=== PATIENT | female | born 1990 | race Caucasian/White ===

== ENCOUNTER 2018-10-23 15:29 | Emergency (ER) | payer MEDICAID ==
[~2018-10-23] VITALS: Ht 162.6 cm; Wt 59.0 kg
[2018-10-23] MEDS ORDERED: NKM (15:39)
--- NOTE | 2018-10-23 16:00 | NUR ---
ED Nurse Note:pt. came with c/o nausea and abdominal pain, urine was sent to labs and zofran given
--- NOTE | 2018-10-23 16:05 | Emergency Room Report ---
History of Present Illness General Chief Complaint: Nausea Source: Patient Present Illness HPI 27-year-old female with no PMH complaining of nausea and mood swings x1 to 2 weeks, worse in the last 3 days. Denies fever, URI symptoms, headache, vomiting, abdominal pain, dysuria, vaginal bleed. LMP September 19, 2018. Allergies: Coded Allergies: GLUTEN (Verified Allergy, Unknown, 10/23/18) Patient History Past Medical History: none Past Surgical History: none Social History: Denies: smoking, alcohol use, drug use Last Menstrual Period: 09/2018 Nursing Documentation-PMH Past Medical History: No Stated History Review of Systems All Other Systems: negative except mentioned in HPI Physical Exam Vital Signs Date Time Temp Pulse Resp B/P (MAP) Pulse Ox O2 Delivery O2 Flow Rate FiO2 10/23/18 15:35 98.4 88 16 112/63 (79) 98 Room Air Sp02 EP Interpretation: reviewed, normal Respiratory: chest non-tender, lungs clear, normal breath sounds, speaking full sentences Cardiovascular #1: regular rate, rhythm, no edema Gastrointestinal: normal bowel sounds, non tender, soft, non-distended, no guarding, no rebound Neurologic: alert, oriented x3, responsive, motor strength/tone normal, sensory intact, speech normal Skin: no rash, warm/dry Medical Decision Making PA Attestation This patient was seen under the direct supervision of Dr. Arana, who directed all aspects of care and diagnostic interpretation. Diagnostic Impression: Primary Impression: ER Course ED course HPI: 27-year-old female with no PMH complaining of nausea and mood swings x1 to 2 weeks, worse in the last 3 days. Denies fever, URI symptoms, headache, vomiting, abdominal pain, dysuria, vaginal bleed. LMP September 19, 2018. Orders/ Interventions: Patient given Zofran for nausea in the ER. Urine is positive. Disposition: Followup with PCP for referral to LOCOMOTIVE INSPECTOR. Start vitamins. At this time pt. is stable for d/c to home. Will provide printed patient care instructions, and any necessary prescriptions. Care plan and follow up instructions have been discussed with the patient prior to discharge. Please note that this Emergency Department Report was dictated using [employer]tear[employer] host technology software, occasionally this can lead to erroneous entry secondary to interpretation by the dictation equipment. Last Vital Signs Date Time Temp Pulse Resp B/P (MAP) Pulse Ox O2 Delivery O2 Flow Rate FiO2 10/23/18 15:35 98.4 88 16 112/63 (79) 98 Room Air Status: unchanged Disposition: HOME, SELF-CARE Condition: Stable Referrals: NOT CHOSEN [facility],REFERRING (PCP) Patient Instructions: Nausea, Adult, Test Information Additional Instructions: Follow-up with PCP for referral to LOCOMOTIVE INSPECTOR. Nena Mcgraw Oct 23, 2018 16:05
[2018-10-23 16:08] VITALS: BP 112/63
[2018-10-23 16:59] VITALS: BP 112/63
--- NOTE | 2018-10-23 17:00 | NUR ---
ER DISCHARGE NOTE: Patient is cleared to be discharged per ERMD, pt is aox4, on room air, with stable vital signs. pt was given dc and prescription instructions, pt was able to verbalize understanding, pt is able to ambulate with steady gait. pt took all belongings.
== END 2018-10-23 17:10 | disposition home or self-care (01) ==
LOC: EMR 15:48
DX: O26.891 Other specified pregnancy related conditions, first trimester (principal); R11.0 Nausea; Z91.018 Allergy to other foods
CPT/HCPCS: 81025; 99283

== ENCOUNTER 2019-09-17 17:58 | Emergency (ER) | payer MEDICAID ==
[~2019-09-17] VITALS: Ht 162.6 cm; Wt 56.7 kg
[~2019-09-17 17:58] MED LIST: NKM
--- NOTE | 2019-09-17 18:20 | NUR ---
ED Nurse Note: pt walked in to ER from home and brought an infact baby. pt aao x4 and ambulatory. pt came to check . per pt, she had normal period 2 weeks ago and it ended a week ago. and pt started spotting few days ago. last sexual activity was yesterday. no cardiac or pulmonary distress noted at this time. pt was educated on how occurs by ERPA. urine sample sent to lab.
[2019-09-17 18:30] LABS: APPEARANCE,URINE SLIGHTLY CLOUDY; BILIRUBIN, URINE NEGATIVE (NEGATIVE); GLUCOSE, URINE (UA) NEGATIVE (NEGATIVE); KETONES,URINE NEGATIVE (NEGATIVE); LEUKOCYTE ESTERASE ,URINE 3+ (NEGATIVE); NITRITE,URINE NEGATIVE (NEGATIVE); PH,URINE 5 (4.5-8.0); PROTEIN,URINE NEGATIVE (NEGATIVE); UROBILINOGEN,URINE NORMAL MG/DL (0.0-1.0)
[2019-09-17 18:36] LABS: COLOR,URINE YELLOW
[2019-09-17 18:38] VITALS: BP 102/70
--- NOTE | 2019-09-17 18:39 | Emergency Room Report ---
History of Present Illness General Chief Complaint: Female Urogenital Problems Source: Patient Present Illness HPI 29-year-old female with no significant past medical history who is G1, P1 here requesting a test. Patient denies any abdominal pain, vaginal bleeding. Reports that her last menstrual period started 2 weeks ago and ended 1 week ago lasting exactly 7 days. Reports that 30 last night after she was sexually active she started spotting. Denies any abdominal cramping pelvic pain. Denies any vaginal discharge. Denies any urinary frequency and urgency. Has not taken medication for symptom relief. Reports that she has not done any home test. Is only requesting a test at this time. Allergies: Coded Allergies: GLUTEN (Verified Allergy, Unknown, 10/23/18) COVID-19 Screening Contact w/high risk pt: No Experienced COVID-19 symptoms?: No COVID-19 Screening: Negative COVID-19 COVID-19 Testing Source: [place] Patient History Past Medical History: see triage record Past Surgical History: none Pertinent Family History: none Last Menstrual Period: 09/05/2019 Now: No Immunizations: UTD Reviewed Nursing Documentation: PMH: Agreed; PSxH: Agreed Nursing Documentation-PMH Past Medical History: No Stated History Review of Systems All Other Systems: negative except mentioned in HPI Physical Exam Vital Signs Date Time Temp Pulse Resp B/P (MAP) Pulse Ox O2 Delivery O2 Flow Rate FiO2 09/17/19 18:03 98.2 81 16 102/70 (81) 100 Room Air Sp02 EP Interpretation: reviewed, normal General Appearance: no apparent distress, alert, GCS 15, non-toxic Head: normocephalic, atraumatic Eyes: bilateral eye normal inspection, bilateral eye PERRL ENT: hearing grossly normal, normal pharynx, no angioedema, normal voice Neck: full range of motion, supple/symm/no masses Respiratory: chest non-tender, lungs clear, normal breath sounds, no rhonchi, no retraction, speaking full sentences Cardiovascular #1: regular rate, rhythm, no edema, no murmur Gastrointestinal: normal bowel sounds, non tender, soft, non-distended, no guarding, no rebound Rectal: deferred Genitourinary: no CVA tenderness Musculoskeletal: back normal Neurologic: alert, motor strength/tone normal, oriented x3, sensory intact, responsive, speech normal Psychiatric: judgement/insight normal, memory normal, mood/affect normal, no suicidal/homicidal ideation Skin: no rash Lymphatic: no adenopathy Medical Decision Making PA Attestation All my diagnosis and treatment plans were reviewed ad discussed with my supervising physician Dr. Berg Diagnostic Impression: Primary Impression: UTI (urinary tract infection) Additional Impression: Negative test ER Course 29-year-old female with no significant past medical history who is G1, P1 here requesting a test. Patient denies any abdominal pain, vaginal bleeding. Reports that her last menstrual period started 2 weeks ago and ended 1 week ago lasting exactly 7 days. Reports that 30 last night after she was sexually active she started spotting. Denies any abdominal cramping pelvic pain. Denies any vaginal discharge. Denies any urinary frequency and urgency. Has not taken medication for symptom relief. Reports that she has not done any home test. Is only requesting a test at this time. Ddx considered but are not limited to: UTI, pyelonephritis, urinary incontinence , prolapsed bladder, threatened , spontaneous , positive test, negative test, vaginal bleeding during Vital signs: are WNL, pt. is afebrile H&PE are most consistent with: UTI, negative test ORDERS: UA, urine cx, urine test, Macrobid ED INTERVENTIONS: None required at this time. DISCHARGE: At this time pt. is stable for d/c to home. Will provide printed patient care instructions, and any necessary prescriptions. Care plan and follow up instructions have been discussed with the patient prior to discharge. Advised patient to finding of UTI, course of symptoms return to emergency room. I also explained to patient that patient is most likely spotting during her ovulation. Last Vital Signs Date Time Temp Pulse Resp B/P (MAP) Pulse Ox O2 Delivery O2 Flow Rate FiO2 09/17/19 18:03 98.2 81 16 102/70 (81) 100 Room Air Disposition: HOME, SELF-CARE Condition: Stable Scripts Nitrofurantoin Monohyd/M-Cryst* (MACROBID 100 MG*) 100 Mg Capsule 100 MG ORAL EVERY 12 HOURS for 7 Days, #14 CAP Prov: Robin Ramirez 09/17/19 Referrals: [facility]ERR[facility] (PCP) Patient Instructions: Urinary Tract Infection Additional Instructions: Take medication as directed, follow primary care provider, if worsening symptoms return to the emergency room. Robin Ramirez Sep 17, 2019 18:39
[2019-09-17] MEDS ORDERED: NITROFURANTOIN100 M2 ORAL (18:40)
[2019-09-17 18:43] VITALS: BP 102/70
== END 2019-09-17 18:43 | disposition home or self-care (01) ==
LOC: EMR 18:36
DX: N39.0 Urinary tract infection, site not specified (principal)
CPT/HCPCS: 81003; 81025; 87086; Z7502; 99283

== ENCOUNTER 2019-10-28 17:29 | Emergency (ER) | payer MEDICAID ==
[~2019-10-28] VITALS: Ht 162.6 cm; Wt 65.3 kg
[~2019-10-28 17:29] MED LIST changes: +NITROFURANTOIN100 M2 ORAL
[2019-10-28 17:53] VITALS: BP 109/70
--- NOTE | 2019-10-28 18:10 | Emergency Room Report ---
History of Present Illness General Chief Complaint: General Complaint Source: Patient Present Illness HPI 29 YO female with no significant past medical hx, presents to the ED c/o missed period and concern for . Pt. reports she should have had her cycle last week. She also reports her last one was only spotting which is irregular for her. She reports that she was on control but after thinking she was she self D/C'd. Pt. reports very similar presentation with her previous . She denies pain. Denies nausea/vomiting , fevers or chills. Denies VILLEDA, dysuria, hematuria or urinary frequency. Allergies: Coded Allergies: GLUTEN (Verified Allergy, Unknown, 10/23/18) COVID-19 Screening Contact w/high risk pt: No Experienced COVID-19 symptoms?: No COVID-19 Testing performed CLEANING MANAGER: No COVID-19 Screening: Negative COVID-19 COVID-19 Testing Source: nasal Patient History Past Medical History: see triage record Past Surgical History: none Pertinent Family History: none Last Menstrual Period: unknown Reviewed Nursing Documentation: PMH: Agreed; PSxH: Agreed Nursing Documentation-PMH Past Medical History: No Stated History Review of Systems All Other Systems: negative except mentioned in HPI Physical Exam Vital Signs Date Time Temp Pulse Resp B/P (MAP) Pulse Ox O2 Delivery O2 Flow Rate FiO2 10/28/19 17:36 98.6 72 17 109/70 (83) 99 Room Air Sp02 EP Interpretation: reviewed, normal General Appearance: no apparent distress, alert, GCS 15, non-toxic Head: normocephalic, atraumatic Eyes: bilateral eye normal inspection, bilateral eye PERRL ENT: hearing grossly normal, normal voice Neck: full range of motion Respiratory: lungs clear, normal breath sounds, speaking full sentences Cardiovascular #1: regular rate, rhythm Gastrointestinal: normal bowel sounds, non tender, soft, non-distended, no guarding Genitourinary: normal inspection, no CVA tenderness Musculoskeletal: back normal, normal range of motion, gait/station normal, non- tender Neurologic: alert, motor strength/tone normal, oriented x3, sensory intact, responsive, speech normal Psychiatric: judgement/insight normal Skin: normal color Medical Decision Making PA Attestation Dr. Smallwood is my supervising Physician whom patient management has been discussed with. Diagnostic Impression: Primary Impression: UTI (urinary tract infection) Qualified Codes: N30.01 - Acute cystitis with hematuria Additional Impression: Negative test ER Course 29 YO female presents to the ED c/o missed period and concern for . Pt. reports she should have had her cycle last week. She also reports her last one was only spotting which is irregular for her. She reports that she was on birthcontrol but after thinking she was she self D/C'd. Pt. reports very similar presentation with her previous . She denies pain. Denies nausea/vomiting , fevers or chills. Denies VILLEDA, dysuria, hematuria or urinary frequency. Ddx considered but are not limited to UTi , , ectopic , irregular menstruation just to name a few Vital signs: are WNL, pt. is afebrile H&PE are most consistent with UTI ORDERS: - UA labs are attached -- evidence of UTI -Urine : Negative ED INTERVENTIONS: None required at this time. DISCHARGE: At this time pt. is stable for d/c to home. Will provide printed patient care instructions, and any necessary prescriptions. Care plan and follow up instructions have been discussed with the patient prior to discharge. Labs Test 10/28/19 17:45 Urine Color Pale yellow Urine Appearance Slightly cloudy Urine pH 5 (4.5-8.0) Urine Specific [place] 1.010 (1.005-1.035) Urine Protein Negative (NEGATIVE) Urine Glucose (UA) Negative (NEGATIVE) Urine Ketones Negative (NEGATIVE) Urine Blood 3+ (NEGATIVE) Urine Nitrite Negative (NEGATIVE) Urine Bilirubin Negative (NEGATIVE) Urine Urobilinogen Normal MG/DL (0.0-1.0) Urine Leukocyte Esterase 3+ (NEGATIVE) Urine RBC 5-10 /HPF (0 - 2) Urine WBC Tntc /HPF (0 - 2) Urine Squamous Epithelial Cells Many /LPF (NONE/OCC) Urine Bacteria Few /HPF (NONE) Urine HCG, Qualitative Negative (NEGATIVE) Last Vital Signs Date Time Temp Pulse Resp B/P (MAP) Pulse Ox O2 Delivery O2 Flow Rate FiO2 10/28/19 17:53 72 17 Room Air 10/28/19 17:53 109/70 99 10/28/19 17:36 98.6 Status: improved Disposition: HOME, SELF-CARE Condition: Stable Scripts Cephalexin* (KEFLEX*) 500 Mg Capsule 500 MG ORAL EVERY 12 HOURS for 7 Days, #14 CAP 0 Refills Prov: Raysa Kramer 10/28/19 Referrals: [facility]ERR[facility] (PCP) Patient Instructions: Urinary Tract Infection, [id number]-[id number] Additional Instructions: Take medications as directed. Follow up with a Primary Care Provider in 3-5 days, even if your symptoms have resolved. --Please review list of primary care clinics, if you do not already have a primary care provider Return sooner to ED if new symptoms occur, or current symptoms become worse. - Please note that this Emergency Department Report was dictated using [employer] entry audit clerk technology software, occasionally this can lead to erroneous entry secondary to interpretation by the dictation equipment. Raysa Kramer Oct 28, 2019 18:10
[2019-10-28 18:23] LABS: APPEARANCE,URINE SLIGHTLY CLOUDY; BILIRUBIN, URINE NEGATIVE (NEGATIVE); COLOR,URINE PALE YELLOW; GLUCOSE, URINE (UA) NEGATIVE (NEGATIVE); KETONES,URINE NEGATIVE (NEGATIVE); LEUKOCYTE ESTERASE ,URINE 3+ (NEGATIVE); NITRITE,URINE NEGATIVE (NEGATIVE); PH,URINE 5 (4.5-8.0); PROTEIN,URINE NEGATIVE (NEGATIVE); UROBILINOGEN,URINE NORMAL MG/DL (0.0-1.0)
[2019-10-28] MEDS ORDERED: CEPHALEXIN500 MG ORAL (18:44)
[2019-10-28 18:48] VITALS: BP 109/70
== END 2019-10-28 18:49 | disposition home or self-care (01) ==
LOC: EMR 17:51
DX: N30.01 Acute cystitis with hematuria (principal); Z32.02 Encounter for pregnancy test, result negative
CPT/HCPCS: 81003; 81025; 87086; Z7502; 99282